=== PATIENT | female | born 1950 | race Caucasian/White ===

== ENCOUNTER → 2017-06-19 | Outpatient (CLI) | payer OTHER | LOC: FIMAGING 10:36 | PROVIDERS: ATTEND Family Medicine | DX: Z12.31 Encounter for screening mammogram for malignant neoplasm of breast (principal) | CPT/HCPCS: G0202 ==

== ENCOUNTER → 2017-07-22 | Outpatient (CLI) | payer OTHER | LOC: FIMAGING 12:31 | PROVIDERS: ATTEND Family Medicine | DX: R06.09 Other forms of dyspnea (principal) ==

== ENCOUNTER → 2018-06-22 | Outpatient (CLI) | payer OTHER | LOC: FIMAGING 11:48 | PROVIDERS: ATTEND Internal Medicine | DX: Z12.31 Encounter for screening mammogram for malignant neoplasm of breast (principal) ==

== ENCOUNTER 2018-07-06 12:43 | Day surgery (SDC) | payer OTHER ==
[2018-07-06] MEDS ORDERED: CLINDAMYCIN 900 MG/DEXTROSE 50 ML IV ONE (13:19)
[2018-07-06] MEDS ORDERED: LR 1,000 ML IV ONE (13:24)
[2018-07-06] MEDS ORDERED: LIDOCAINE 1% 2 ML INJ ID PRN (13:24)
--- NOTE | 2018-07-06 14:16 | PDHPUP ---
History & Physical Update H&P update statement: This history and physical update is based on an assessment of the patient which was completed after admission or registration (within 24 hours), but prior to the surgery/procedure. H&P update: H&P reviewed & patient examined, no change in patient's condition since H&P completed
[2018-07-06] MEDS ORDERED: MIDAZOLAM 2 MG/2 ML VIAL IVP ONE (14:27)
[2018-07-06] MEDS ORDERED: ENALAPRILAT DIHYDRATE 1.25 MG/ML VIAL IVP PRN (14:31)
[2018-07-06] MEDS ORDERED: HYDROCODONE/APAP 5/325 TAB PO PRN (14:31)
[2018-07-06] MEDS ORDERED: ACETAMINOPHEN 500 MG TAB PO PRN (14:31)
[2018-07-06] MEDS ORDERED: PROMETHAZINE HCL 25 MG/ML INJ IVP PRN (14:31)
[2018-07-06] MEDS ORDERED: DEXAMETHASONE 4 MG/ML VIAL IVP PRN (14:31)
[2018-07-06] MEDS ORDERED: oxyCODONE IR 5 MG TAB PO PRN (14:31)
[2018-07-06] MEDS ORDERED: LR 500 ML IV PRN (14:31)
[2018-07-06] MEDS ORDERED: NALOXONE HCL 0.4 MG/ML INJ IVP PRN (14:31)
[2018-07-06] MEDS ORDERED: ONDANSETRON 4 MG/2 ML VIAL IVP PRN ×2 (14:31→16:16)
[2018-07-06] MEDS ORDERED: LABETALOL HCL 5 MG/ML 20 ML MDV IVP PRN (14:31)
[2018-07-06] MEDS ORDERED: fentaNYL 100 MCG/2 ML INJ IVP PRN (14:31)
--- NOTE | 2018-07-06 14:31 | PDANEPAE ---
ANE Past Medical History - Cardiovascular History Hx Hypertension: Yes Hx Arrhythmias: No Hx Chest Pain: No Hx Coronary Artery / Peripheral Vascular Disease: No Hx CHF / Valvular Disease: No Hx Palpitations: No Cardiovascular History Comment: hypertension ~ 10 years, controlled with medications - Pulmonary History Hx COPD: No Hx Asthma/Reactive Airway Disease: No Hx Recent Upper Respiratory Infection: Yes Hx Oxygen in Use at Home: No Hx Sleep Apnea: No Sleep Apnea Screening Result - Last Documented: Positive Pulmonary History Comment: PNEUMONIA 05/16. FINISHED Z-PACK 05/28/18 - Neurologic History Hx Cerebrovascular Accident: No Hx Seizures: No Hx Dementia: No - Endocrine History Hx Diabetes: No - Renal History Hx Renal Disorders: No - Liver History Hx Hepatic Disorders: No - Neurological & Psychiatric Hx Hx Neurological and Psychiatric Disorders: No - Cancer History Hx Cancer: No - Congenital Disorder History Hx Congenital Disorders: No - GI History Hx Gastrointestinal Disorders: Yes Gastrointestinal History Comment: GERD diagnosed ~ 5 years ago - Other Health History Other Health History: OSTEOARTHRITIS, DEGENERATIVE JOINT DISEASE to include lumbar disc disease and scoliosis - Chronic Pain History Chronic Pain: Yes (does have pain with walking none if sitting still) - Surgical History Prior Surgeries: RIGHT HIP ARTHROPLASTY 2012. BILATERAL SHOULDER SURGERY, KNEE SURGERY ARTHROSCOPY. February & March 2014 lower spine injections. April 2014 right hip injection ANE Review of Systems Review of Systems: - Exercise capacity METS (RN): 4 METS ANE Patient History - Allergies Allergies/Adverse Reactions: amoxicillin [Amoxicillin] Allergy (Verified 01/06/16 15:13) Rash bee venom protein (honey bee) Allergy (Verified 06/08/18 13:46) erythromycin base [Erythromycin Base] Allergy (Verified 06/08/18 13:42) Vomiting - Home Medications Home medications: home medication list seen and reviewed Home Medications: Cholecalciferol (Vitamin D3) [Vitamin D3] 2,000 unit PO DAILY 07/08/14 [Last Taken 06/22/18] Cyanocobalamin [Vitamin B12 (*)] 1,000 mcg PO DAILY 07/08/14 [Last Taken ] Hydrochlorothiazide [HCTZ (*)] 25 mg PO DAILY 07/08/14 [Last Taken 07/05/18] Losartan Potassium [Cozaar 50 mg (*)] 100 mg PO DAILY 07/08/14 [Last Taken 07/06 08:00] [place]-3 Fatty Acids/Fish Oil [[place] 3 1,000 mg Softgel] 2 each PO DAILY [Last Taken 06/22/18] Omeprazole [Prilosec 20 mg] 20 mg PO DAILY 07/08/14 [Last Taken 07/05/18] Potassium Chloride 20 meq PO DAILY 07/08/14 [Last Taken 07/05/18] Vitamin B Complex [B Complex] 1 each PO DAILY 07/08/14 [Last Taken 06/22/18] Lindsay Allergy 06/08/18 [Last Taken 07/05/18] Aspirin [Aspirin 325 mg (OTC)] 81 mg PO DAILY 06/08/18 [Last Taken 06/22/18] Crestor 20mg (*) 06/08/18 [Last Taken 07/05/18 21:00] Singulair 10 mg (*) 06/08/18 [Last Taken 07/05/18] Verapamil 06/08/18 [Last Taken 07/05/18] - NPO status NPO Status: no food or drink >8 hours NPO Since - Liquids (Date): 07/06/18 NPO Since - Liquids (Time): 11:00 NPO Since - Solids (Date): 07/06/18 NPO Since - Solids (Time): 06:00 - Anes Hx Anes Hx: no prior problems - Smoking Hx Smoking Status: Never smoked - Family Anes Hx Family Hx Anesthesia Complications: NONE ANE Labs/Vital Signs - Vital Signs Blood Pressure: 161/109 Heart Rate: 96 Respiratory Rate: 13 O2 Sat (%): 94 Height: 170.18 cm Weight: 77.111 kg ANE Physical Exam - Airway Neck exam: FROM Mallampati Score: Class 3 Mouth exam: normal dental/mouth exam - Pulmonary Pulmonary: no respiratory distress, no rales or rhonchi, clear to auscultation - Cardiovascular Cardiovascular: regular rate and rhythym, no murmur, rub, or gallop - ASA Status ASA Status: II ANE Anesthesia Plan Anesthesia Plan: MAC
[2018-07-06] MEDS ORDERED: PROPOFOL 200 MG/20 ML VIAL ONE (14:35)
[2018-07-06] MEDS ORDERED: fentaNYL 100 MCG/2 ML INJ ONE (14:35)
[2018-07-06] MEDS ORDERED: BUPIVACAINE 0.5% 30 ML SDV ONE (14:36)
[2018-07-06] MEDS ORDERED: BACITRACIN 50,000 UNITS/10 ML SYR IRR ONE (14:37)
--- NOTE | 2018-07-06 16:13 | POSTANESTH ---
Post Anesthetic Evaluation Cardiovascular Status: Normal, Stable Respiratory Status: Normal, Stable, Similar to Pre-op Cond. Level of Consciousness/Mental Status: Can Participate in Eval, Alert and Oriented Pain Control: Adequate, Prn Tx Ordered Nausea/Vomiting Control: Adequate, Prn Tx Ordered Complications Possibly Related to Anesthesia: None Noted
[2018-07-06] MEDS ORDERED: OXYCODONE/APAP 5/325 TAB PO PRN (16:16)
[2018-07-06] MEDS ORDERED: ONDANSETRON DISINTEGRATING 4 MG TAB PO PRN (16:16)
[2018-07-06 17:04] VITALS: BP 174/90
--- NOTE | 2018-07-07 13:58 | GOP ---
DATE OF OPERATION: 07/06/2018 SURGEON: Andres Bowen DPM HEAVY DUTY CUSTODIAN: None. ANESTHESIA: MAC with local 20 mL 0.5% Marcaine plain. PREOPERATIVE DIAGNOSIS: 1. Hallux rigidus, right foot. 2. Metatarsus primus varus, right foot. 3. Transient synovitis, right foot. POSTOPERATIVE DIAGNOSIS: 1. Hallux rigidus, right foot. 2. Metatarsus primus varus, right foot. 3. Transient synovitis, right foot. PROCEDURE PERFORMED: 1. Repair of hallux rigidus with 1st metatarsophalangeal joint implant, right foot. 2. First metatarsal osteotomy with bone graft, right foot. 3. Arthrocentesis, right foot. FINDINGS: Gross findings consistent with diagnosis. ESTIMATED BLOOD LOSS: Zero. INDICATIONS: The patient has longstanding history of pain and arthritis with a bunion and an arthrit ic right big toe joint. The patient has failed all nonsurgical treatment and has elected to undergo surgical intervention at this time. DESCRIPTION OF PROCEDURE: After identification, the patient was brought into the operating room and placed on the operating table in the supine position. Follow IV sedation, local anesthesia was obtain ed around the patient's right foot utilizing a total of 20 mL 0.5% Marcaine plain. Pneumatic ankle to urniquet was placed around the patient's right ankle with ample padding. The foot was then scrubbed, prepped, and draped in the usual aseptic manner. An Esmarch bandage was utilized to exsanguinate th e patient's right foot. The pneumatic ankle tourniquet was then inflated. Attention was first directed to the medial aspect of the patient's right foot, where a 5 cm linear lo ngitudinal incision was made at the medial aspect of the 1st metatarsophalangeal joint. This incisio n was deepened through the subcutaneous tissue to the level of the joint capsule with care being take n to identify and retract all vital neurovascular structures. Bleeders were ligated and cauterized a s necessary. A lenticular capsulorrhaphy was performed at the medial aspect of the 1st metatarsophal angeal joint. This lenticular piece of capsule was excised in total and passed from the operative fi eld. Capsular structures were reflected dorsally and plantarly thus exposing the 1st metatarsophalan geal joint at the operative site. It was noted at this time, that nearly 100% of the cartilage had b een denuded from the 1st metatarsal head surface. Several loose bodies were excised from within the 1st metatarsophalangeal joint and passed from the operative field. A McGlamry elevator was inserted from medial to lateral between the first metatarsal head and the sesamoid apparatus to serve as a rel ease of adhesions and a lateral ligamentous release. Attention was now directed to the 1st metatarsal bone, where a [id number] Z-shaped scarf ost eotomy was performed from medial to lateral in the head, neck, and shaft of first metatarsal bone. U stan completion of this osteotomy, the capital fragment was translated laterally into a more anatomic and correct position on the 1st metatarsal. Following temporary fixation, two 3.5 headless Arthrex s crews were driven obliquely across the osteotomy site to serve as stable fixation. Redundant bone at the medial aspect of the 1st metatarsal bone was excised, remodeled, and replaced within the osteoto my site to serve as a bone graft. Rough edges were smoothed with a bone bur. At this time, it was n oted that the 1st metatarsal bone was anatomic and fixation was extremely stable. Attention was then directed to the first metatarsal head where a Cartiva implant was inserted using s tandard technique into the first metatarsal head. After drilling the hole, the Cartiva implant was i nserted using the applicator in standard technique. Appropriate position of this implant was noted a t this time with approximately 3-4 mm of implant proud distally. All remaining rough edges were smoo thed with a bone bur. The incision site was flushed with normal sterile saline solution. Capsular structures were reapproximated utilizing 2-0 Vicryl, subcutaneous tissue reapproximated util izing 3-0 Vicryl, skin reapproximated using 5-0 Vicryl in a running subcuticular suture technique. F our milligrams of dexamethasone was injected into the operative site at the end of this procedure. I ncision was then dressed with Steri-Strips, Adaptic, 4x4 gauze, Webril, Arin, Brandon bandage. The fausto ent transported to the postoperative recovery area with vital signs stable and vascular status intact to the right foot. The patient tolerated the procedure and anesthesia well. HEMOSTASIS: Right pneumatic ankle tourniquet inflated 250 mmHg for 32 minutes. MATERIALS: Cartiva implant x1, 3.5 headless Arthrex x2. INJECTABLES: 4 mg dexamethasone. CONDITION: Stable. /[id number]/MODL
== END 2018-07-06 17:48 | disposition home or self-care (01) ==
LOC: FSGY 12:43
PROVIDERS: ATTEND Podiatrist
DX: M20.21 Hallux rigidus, right foot (principal); Q66.21 Congenital metatarsus primus varus; M67.371 Transient synovitis, right ankle and foot; K21.9 Gastro-esophageal reflux disease without esophagitis; I10 Essential (primary) hypertension; Z96.641 Presence of right artificial hip joint
CPT/HCPCS: C1713; J2250; J2704; J3010

== ENCOUNTER → 2018-08-14 | Outpatient (CLI) | payer OTHER | LOC: FIMAGING 09:58 | PROVIDERS: ATTEND Internal Medicine | DX: E04.1 Nontoxic single thyroid nodule (principal) ==

== ENCOUNTER 2018-12-21 13:58 | Outpatient (CLI) | payer OTHER ==
[2018-12-21] MEDS ORDERED: MIDAZOLAM 2 MG/2 ML VIAL IVP PRN (14:05)
[2018-12-21] MEDS ORDERED: FLUMAZENIL 0.5 MG/5 ML MDV IVP PRN (14:05)
[2018-12-21] MEDS ORDERED: NALOXONE HCL 0.4 MG/ML INJ IVP PRN (14:05)
[2018-12-21] MEDS ORDERED: ONDANSETRON 4 MG/2 ML VIAL IVP ONE (14:05)
[2018-12-21] MEDS ORDERED: fentaNYL 100 MCG/2 ML INJ IVP PRN (14:05)
[2018-12-21] MEDS ORDERED: NS 1,000 ML IV SCH (14:15)
[2018-12-21] MEDS ORDERED: MIDAZOLAM 2 MG/2 ML VIAL ONE (14:21)
[2018-12-21] MEDS ORDERED: fentaNYL 100 MCG/2 ML INJ ONE (14:21)
[2018-12-21] MEDS ORDERED: FLUMAZENIL 0.5 MG/5 ML MDV IVP ONE (14:21)
[2018-12-21] MEDS ORDERED: NALOXONE HCL 0.4 MG/ML INJ ONE (14:21)
[2018-12-21 17:35] VITALS: BP 126/74
== END 2018-12-21 17:43 | disposition home or self-care (01) ==
LOC: FIMAGING 13:58
PROVIDERS: ATTEND Physical Medicine & Rehabilitation
DX: M25.552 Pain in left hip (principal); M24.852 Other specific joint derangements of left hip, not elsewhere classified; Z96.642 Presence of left artificial hip joint
CPT/HCPCS: 73721; J2250; J3010; J2310

== ENCOUNTER → 2019-02-01 | Outpatient (CLI) | payer OTHER | LOC: BMCIMAGING 16:29 | PROVIDERS: ATTEND Internal Medicine | DX: Z01.818 Encounter for other preprocedural examination (principal); R68.89 Other general symptoms and signs; R05 Cough; I70.0 Atherosclerosis of aorta ==

== ENCOUNTER 2019-02-10 09:56 | Inpatient (IN) | payer OTHER ==
[~2019-02-10 09:56] MED LIST: ROPIVACAINE 0.2% 80 MG, EPINEPHrine 0.2 MG, KETOROLAC TROMETHAMINE 30 MG in SYRINGE 0 ML IU ONE; TRANEXAMIC ACID 3,000 MG in NS (SYRINGE) 50 ML IRR ONE; TRANEXAMIC ACID 3,000 MG/50 ML BAG IRR ONE
[2019-02-10] MEDS ORDERED: ACETAMINOPHEN 325 MG TAB PO ONE (10:07)
[2019-02-10] MEDS ORDERED: DEXAMETHASONE 4 MG/ML VIAL IVP ONE (10:07)
[2019-02-10] MEDS ORDERED: ceFAZolin 2 GM/DEXTROSE 100 ML IV ONE (10:07)
[2019-02-10] MEDS ORDERED: FAMOTIDINE 20 MG TAB PO ONE (10:07)
[2019-02-10] MEDS ORDERED: LR 1,000 ML IV ONE (10:10)
[2019-02-10] MEDS ORDERED: fentaNYL 100 MCG/2 ML INJ IVP PRN (11:43)
[2019-02-10] MEDS ORDERED: MIDAZOLAM 2 MG/2 ML VIAL IVP ONE (11:43)
[2019-02-10] MEDS ORDERED: HYDROmorphONE/DILAUDID 1 MG/ML INJ IVP PRN (11:43)
[2019-02-10] MEDS ORDERED: oxyCODONE IR 5 MG TAB PO PRN ×2 (11:43→13:27)
[2019-02-10] MEDS ORDERED: NALOXONE HCL 0.4 MG/ML INJ IVP PRN (11:43)
[2019-02-10] MEDS ORDERED: ONDANSETRON 4 MG/2 ML VIAL IVP PRN ×2 (11:43→13:27)
[2019-02-10] MEDS ORDERED: PROMETHAZINE HCL 25 MG/ML INJ IVP PRN ×2 (11:43→13:27)
--- NOTE | 2019-02-10 11:43 | PDANEPAE ---
ANE History of Present Illness L SARA ANE Past Medical History - Cardiovascular History Hx Hypertension: Yes Hx Arrhythmias: No Hx Chest Pain: No Hx Coronary Artery / Peripheral Vascular Disease: No Hx CHF / Valvular Disease: No Hx Palpitations: No Cardiovascular History Comment: hypertension ~ 10 years, controlled with medications - Pulmonary History Hx COPD: No Hx Asthma/Reactive Airway Disease: No Hx Recent Upper Respiratory Infection: Yes Hx Oxygen in Use at Home: No Hx Sleep Apnea: No Sleep Apnea Screening Result - Last Documented: Negative Pulmonary History Comment: PNEUMONIA 05/16. FINISHED Z-PACK - Neurologic History Hx Cerebrovascular Accident: No Hx Seizures: No Hx Dementia: No - Endocrine History Hx Diabetes: No - Renal History Hx Renal Disorders: No - Liver History Hx Hepatic Disorders: No - Neurological & Psychiatric Hx Hx Neurological and Psychiatric Disorders: No - Cancer History Hx Cancer: No - Congenital Disorder History Hx Congenital Disorders: No - GI History Hx Gastrointestinal Disorders: Yes Gastrointestinal History Comment: GERD diagnosed ~ 5 years ago - Other Health History Other Health History: OSTEOARTHRITIS, DEGENERATIVE JOINT DISEASE to include lumbar disc disease and scoliosis - Chronic Pain History Chronic Pain: Yes (L HIP AND LOW BACK) - Surgical History Prior Surgeries: R FOOT BUNION & REPAIR FX. RIGHT HIP ARTHROPLASTY 2012. BILATERAL SHOULDER SURGERY, KNEE SURGERY ARTHROSCOPY. February & March 2014 lower spine injections. April 2014 AGGIE HIP injection ANE Review of Systems Review of Systems: - Exercise capacity METS (RN): 4 METS ANE Patient History - Allergies Allergies/Adverse Reactions: amoxicillin [Amoxicillin] Allergy (Verified 01/06/16 15:13) Rash bee venom protein (honey bee) Allergy (Verified 06/08/18 13:46) erythromycin base [Erythromycin Base] Allergy (Verified 06/08/18 13:42) Vomiting - Home Medications Home Medications: Potassium Chloride 20 meq PO DAILY 07/08/14 [Last Taken 02/10/19 08:00] Aspirin EC [Aspirin EC 81 mg (*)] 81 mg PO HS 01/30/19 [Last Taken 01/27/19] Herbals/Supplements -Info Only 1 ea PO DAILY 01/30/19 [Last Taken 01/27/19] Losartan/Hydrochlorothiazide [Losartan-Hctz 100-25 mg Tab] 1 each PO DAILY 01/30 [Last Taken 02/10/19 08:00] Rosuvastatin Calcium [Crestor 20mg (*)] 20 mg PO HS 01/30/19 [Last Taken 22:00] Verapamil ER [Calan SR/ER 240MG (*)] 240 mg PO DAILY8 01/30/19 [Last Taken 02/10 08:00] - NPO status NPO Since - Liquids (Date): 02/10/19 NPO Since - Liquids (Time): 09:00 NPO Since - Solids (Date): 02/09/19 NPO Since - Solids (Time): 21:00 - Smoking Hx Smoking Status: Never smoked - Family Anes Hx Family Hx Anesthesia Complications: NONE ANE Labs/Vital Signs - Vital Signs Blood Pressure: 146/87 Heart Rate: 81 Respiratory Rate: 15 O2 Sat (%): 96 Height: 171.45 cm Weight: 71.668 kg ANE Physical Exam - Airway Neck exam: FROM Mallampati Score: Class 2 Mouth exam: normal dental/mouth exam - Pulmonary Pulmonary: clear to auscultation - Cardiovascular Cardiovascular: regular rate and rhythym - ASA Status ASA Status: II ANE Anesthesia Plan Anesthesia Plan: spinal
[2019-02-10] MEDS ORDERED: MIDAZOLAM 2 MG/2 ML VIAL ONE (11:46)
[2019-02-10] MEDS ORDERED: PROPOFOL/EMULSION 500 MG/50 ML BOTTLE IV ONE ×2 (12:03→12:44)
[2019-02-10] MEDS ORDERED: ePHEDrine SULFATE 25 MG/5 ML SYR ONE (12:52)
[2019-02-10] MEDS ORDERED: PROMETHAZINE HCL 25 MG SUPPR PR PRN (13:27)
[2019-02-10] MEDS ORDERED: POLYETHYLENE GLYCOL 3350 17 GM PKT PO PRN (13:27)
[2019-02-10] MEDS ORDERED: MAGNESIUM HYDROXIDE 30 ML UDCUP PO PRN (13:27)
[2019-02-10] MEDS ORDERED: CYCLOBENZAPRINE 10 MG TAB PO PRN (13:27)
[2019-02-10] MEDS ORDERED: TEMAZEPAM 15 MG CAP PO PRN (13:27)
[2019-02-10] MEDS ORDERED: LACTULOSE 20 GM/30 ML UDCUP PO PRN (13:27)
[2019-02-10] MEDS ORDERED: BISACODYL 10 MG SUPP PR PRN (13:27)
[2019-02-10] MEDS ORDERED: METOCLOPRAMIDE 10 MG/2 ML VIAL IVP PRN (13:27)
[2019-02-10] MEDS ORDERED: ONDANSETRON DISINTEGRATING 4 MG TAB PO PRN (13:27)
[2019-02-10] MEDS ORDERED: DIPHENOXYLATE/ATROPINE LOMOTIL 1 TAB PO PRN (13:27)
[2019-02-10] MEDS ORDERED: diphenhydrAMINE 25 MG CAP PO PRN (13:27)
--- NOTE | 2019-02-10 13:27 | POSTOPPROG ---
Post Op Note Date of Operation: 02/10/19 Surgeon: Janice Ragsdale Neurophysiologist: Asha TOBAR Anesthesiologist: Dr. Tonny Washington Anesthesia: Spinal Pre-op Diagnosis: left hip OA Post-op Diagnosis: same Indication: left hip pain Procedure: LTHA Findings: severe OA of left hip Inf/Abcess present in the surg proc area at time of surgery?: No EBL: 50-100
[2019-02-10] MEDS ORDERED: LR 1,000 ML IV SCH (13:30)
--- NOTE | 2019-02-10 13:31 | POSTANESTH ---
Post Anesthetic Evaluation Cardiovascular Status: Normal, Stable Respiratory Status: Normal, Stable Level of Consciousness/Mental Status: Can Participate in Eval, Mildly Sleepy, Arousable Pain Control: Adequate, Prn Tx Ordered Nausea/Vomiting Control: Adequate, Prn Tx Ordered Complications Possibly Related to Anesthesia: None Noted
--- NOTE | 2019-02-10 13:36 | PDMN ---
Medical Necessity Medical necessity: [facility] [place] S[place] Arthroplasty, A-2 days: 68 yo s/p L SARA, [facility] IP only
[2019-02-10] MEDS: LOSARTAN/HCTZ 50/12.5 1 TAB PO SCH (15:36)
--- NOTE | 2019-02-10 16:36 | SOAPPROG ---
SOAP Progress Note Assessment/Plan: Assessment: s/p left SARA - procedure earlier today Doing well Plan: D/c planning - likely home tomorrow with support of her Continue VTE ppx - aspirin 81 mg BID, SCDs, DANICA greenberg Continue oral pain medication - oxycodone, celebrex, flexeril, tylenol Continue PT - WBAT, anterior total hip precautions Subjective: Patient states she is doing very well, no pain at this time. She is planning on going home. Denies SOB, CP, fever, chills. Objective: Vital Signs Temp Pulse Resp BP Pulse Ox 36.1 C 66 18 147/90 H 96 02/10/19 16:11 02/10/19 16:11 02/10/19 16:11 02/10/19 16:11 02/10/19 16:11 02/09/19 02/10/19 02/11/19 05:59 05:59 05:59 Intake Total 1200 Balance 1200 Patient resting in bed, no acute distress. LLE: Surgical wound dressings are clean, dry and intact. Lower leg compartments are soft and nontender. She can actively DF and PF left foot and great toe against resistance. Grossly NVI distally. ICD10 Worksheet Patient Problems: Problems Problem Status Onset Unilateral primary osteoarthritis, left hip Acute Osteoarthritis of hip Acute
[2019-02-10] MEDS: FAMOTIDINE 20 MG TAB PO SCH (20:39)
[2019-02-10] MEDS: SENNOSIDES/DOCUSATE SODIUM TAB PO SCH (20:39)
[2019-02-10] MEDS: ASPIRIN 81 MG CHEWABLE TAB PO SCH (20:39)
[2019-02-10] MEDS: ceFAZolin 2 GM/DEXTROSE 100 ML IV SCH (20:39)
[2019-02-10] MEDS: ACETAMINOPHEN 325 MG TAB PO SCH (20:39)
[2019-02-10] MEDS ORDERED: ROSUVASTATIN CALCIUM 20 MG TAB PO SCH (21:00)
[2019-02-11] MEDS: ACETAMINOPHEN 325 MG TAB PO SCH ×2 (01:52→08:16)
[2019-02-11] MEDS: ceFAZolin 2 GM/DEXTROSE 100 ML IV SCH (04:18)
--- NOTE | 2019-02-11 07:20 | SOAPPROG ---
SOAP Progress Note Assessment/Plan: Assessment: 68 year old female s/p left SARA, anterior approach - POD 1 Doing well Anemia - expected initially post-op, asymptomatic, continue to monitor Plan: Continue d/c planning - likely home today with support of her Continue VTE ppx - aspirin 81 mg BID, SCDs, DANICA hose Continue oral pain medication - oxycodone, celebrex, flexeril, tylenol. She has not been needing oxycodone for pain Continue PT - WBAT, anterior total hip precautions. She will need to be cleared by PT prior to d/c Subjective: Patient states she is doing well, pain has increased a bit as the nerve block is wearing off. She still feels well enough to go home today. She denies SOB, CP , fever, chills. Objective: Vital Signs Temp Pulse Resp BP Pulse Ox 36.6 C 82 18 114/64 95 02/11/19 04:00 02/11/19 04:00 02/11/19 04:00 02/11/19 04:00 02/11/19 04:00 Laboratory Results 02/11/19 04:16 02/10/19 02/11/19 02/12/19 05:59 05:59 05:59 Intake Total 1700 Output Total 800 Balance 900 Patient resting in bed, no acute distress. LLE: Wound dressings are clean, dry and intact. Lower leg compartments are soft and nontender. She can actively DF and PF her left foot and great toe against resistance. Grossly NVI distally. ICD10 Worksheet Patient Problems: Problems Problem Status Onset Unilateral primary osteoarthritis, left hip Acute Osteoarthritis of hip Acute
[2019-02-11] MEDS ORDERED: VERAPAMIL ER 240 MG TAB PO SCH (08:00)
[2019-02-11] MEDS: LOSARTAN/HCTZ 50/12.5 1 TAB PO SCH (08:16)
[2019-02-11] MEDS: SENNOSIDES/DOCUSATE SODIUM TAB PO SCH (08:17)
[2019-02-11] MEDS: ASPIRIN 81 MG CHEWABLE TAB PO SCH (08:17)
[2019-02-11] MEDS: FAMOTIDINE 20 MG TAB PO SCH (08:17)
[2019-02-11 08:20] VITALS: BP 142/86
--- NOTE | 2019-02-11 08:40 | PDDCSUM ---
Discharge Summary Discharge Summary: ADMISSION DIAGNOSIS: Left hip severe degenerative arthritis DISCHARGE DIAGNOSIS: Left hip severe degenerative arthritis OPERATION PERFORMED: February 10, 2019, Left total hip arthroplasty, anterior approach POSTOPERATIVE COMPLICATIONS: None CONDITION ON DISCHARGE: Improved HPI: The patient is a 68 year old female who has end-stage arthritis of her left hip. Clinical and radiographic features are consistent with this. Patient has failed attempts at conservative management, therefore, recommended operative total hip replacement. DESCRIPTION OF HOSPITAL COURSE: The patient was admitted to the hospital on the morning of surgery and underwent a left total hip arthroplasty, anterior approach. Postoperatively, patient was treated with multimodal DVT prophylaxis, including aspirin 81 mg BID, SCDs and DANICA hose. Patient was seen by PT and made good progress with ambulation and stairs. On the first post-operative day the patients H&H was 11.4/31.9. Patient was able to void spontaneously. At the time of discharge, patient was afebrile, wound was clean and dry. Patient is walking with a walker. DISPOSITION: The patient is discharged home with the support of her and may have outpatient PT in approximately 3 weeks. Patient may progress to full weightbearing on the left lower extremity as tolerated. DANICA stockings for 2 weeks during the daytime. Aspirin 81 mg BID for 4 weeks. Patient has prescriptions for Celebrex, oxycodone, flexeril for pain control and muscle spasms. The patient will be seen by Dr. Roblero office in approximately 3 weeks. If there are any problems, patient is to call Dr. Roblero office.
[2019-02-11] MEDS ORDERED: POTASSIUM CL 20 MEQ TAB PO SCH (09:00)
--- NOTE | 2019-02-11 09:26 | GOP ---
[f rep st] OPERATIVE REPORT DATE OF OPERATION: 02/10/2019 SURGEON: Latosha Ragsdale MD DEPARTMENT DIRECTOR: Dayana Anderson PA-C. PREOPERATIVE DIAGNOSIS: Left hip osteoarthritis. POSTOPERATIVE DIAGNOSIS: Left hip osteoarthritis. PROCEDURE PERFORMED: Total hip arthroplasty with x-ray. FINDINGS: ESTIMATED BLOOD LOSS: 200 mL. INDICATIONS: The patient has progressively worsening arthritis of the hip which has failed medical m anagement. The patient understands the treatment options including continued non-operative care and has selected surgical intervention. The patient has decided to undergo total hip arthroplasty via th e direct anterior approach, understanding the risks of the procedure including, but not limited to, n eurovascular injury, infection, persistent pain, component wear and loosening, deep venous thrombosis , pulmonary embolism, limb length inequality, hip instability (including dislocation), and intra-oper ative fractures. DESCRIPTION OF PROCEDURE: After proper identification of the patient including verification and jhoan ing the surgical site, the patient was brought to the operating room and placed in the supine positio n. All bony prominences were well padded. Anesthesia was induced without complication and intraveno us prophylactic antibiotics were administered prior to skin incision. The operative leg was placed in the Trumpf Arch table extension and the well leg in a Yellofin leg ho lder. The patient was prepped and draped in the usual sterile fashion. The C-arm was draped for int ra-operative fluoroscopy to check acetabular position, femoral component position including leg lengt h and femoral offset. Attention was then drawn to surgical exposure of the hip. An incision was made with a #10 [place] r blade starting 3 cm lateral and 3 cm distal to the anterior superior iliac spine measuring 8-10 cm and coursing distally toward the greater trochanter. The skin and subcutaneous tissues were divided sharply down to the fascia berhane. The fascia berhane was incised in line with the skin incision exposing the underlying tensor fascia berhane muscle. The muscle was bluntly elevated from the fascia and the f irst extracapsular Cobra retractor was placed laterally at the junction of the superior femoral neck and greater trochanter. The lateral femoral circumflex vessels were identified, cauterized, and divi ded with the Aquamantys bipolar cautery. The deep investing fascia of the TFL was divided to allow p ephraim mobilization of the muscle preventing damage during the retraction. The reflected head of the rectus femoris muscle was elevated off the anterior hip capsule and a medial Cobra retractor was plac ed just proximal to the lesser trochanter. The anterior capsulotomy was made sharply from the superolateral acetabulum to the saddle junction of the superior femoral neck and greater trochanter, then coursing inferomedial towards the lesser troc hanter. The retractors were then placed in the intracapsular position for femoral neck osteotomy. C orresponding to pre-operative templating, the osteotomy was made with the oscillating saw carefully p rotecting the greater trochanter and soft tissues. The femoral head was removed from the acetabulum with a corkscrew and confirmed to be severely arthritic with exposed bone, deformity and osteophytes. Similar findings were confirmed in the acetabulum. The Arch table extension was then placed in 40 degrees external rotation. Attention was then drawn to the acetabular preparation. After placement of the anterior and posterio r Cobra retractors outside the labrum and intracapsular, the circumferential labrum was removed sharp ly. The foveal contents were then removed and hemostasis obtained with cautery. The first reamer selected was sized using the removed femoral head. Reaming began with medialization and then commenced in 2 mm increments at 45 degrees of abduction and 15 degrees of anteversion using fluoroscopic navigation. Reaming ceased 1 mm less than the definitive acetabular component and debora esponded to the pre-operative templating. The final acetabular component was inserted using fluorosc opy to achieve proper orientation yielding excellent purchase and stability in the acetabulum. The f inal acetabular liner was then placed and its seating confirmed. Attention was then turned to the femur. The Arch table extension was placed in extension and adducti on, delivering the osteotomized femoral neck into the wound. A 2-pronged femoral elevator was placed at the calcar and another at the tip of the greater trochanter. The posterolateral capsule was rele ased with cautery allowing mobilization of the femur lateral and anterior for preparation. The exter nal rotators were visualized and preserved. A curette and rongeur were used to open the starting poi nt for broaching. Serial broaching started with the #0 broach and ended with the broach that exhibit ed excellent fit in the proximal femur. A change in pitch during mallet strikes was accompanied by t he inability to advance the broach any further. The trial reduction was performed and fluoroscopic n avigation was utilized to check limb length. Adjustments were made to equalize limb length according ly. After the final trials were accepted they were removed and the wound was copiously lavaged. The femo ral component was seated to the same depth as the final broach and the femoral head was impacted onto the clean trunnion. The hip was then reduced for the final time and once more fluoroscopy was used to check that limb length equality was achieved. The wound was irrigated and closed in layers, the fascia berhane with 2-0 Quill, the subcutaneous tissue with 2-0 Quill, and the skin with Dermabond. Sterile dressings were applied. Final sharps and spon ge counts were accurate. The patient was then transferred to a hospital bed and brought to [facility] room in stable condition. IMPLANTS: Accolade II, size 3, 132. Acetabular component is a Trident II 50 mm. Liner is a trident II X3 32 mm. Head is a Biolox delta 32 mm -4. /[id number]/MODL
--- NOTE | 2019-02-11 09:57 | ASMTLACE ---
LACE Length of stay for Answers: 1 day current admission Acuity / Level of Answers: Yes Care: Did the patient have an inpatient admission? Score: 4 Date Signed: 02/11/2019 09:56 AM Electronically Signed By:RACHEL Laureano
== END 2019-02-11 12:50 | disposition home or self-care (01) | DRG 470 ==
LOC: F3N 09:56
PROVIDERS: ADMIT Orthopaedic Surgery; ATTEND Orthopaedic Surgery
PROC: 0SRB04Z Replacement of Left Hip Joint with Ceramic on Polyethylene Synthetic Substitute, Open Approach (ICD-10-PCS; principal; 2019-02-10 12:00)
DX: M16.12 Unilateral primary osteoarthritis, left hip (principal); Z96.641 Presence of right artificial hip joint; Z87.440 Personal history of urinary (tract) infections; D64.9 Anemia, unspecified
CPT/HCPCS: 97116-GP; 97161-GP; J0171; J0690; J1100; J1885; J2250; J2704; J2795